=== PATIENT | male | born 2000 | race Caucasian/White ===

== ENCOUNTER 2024-10-05 11:51 | Emergency (ER) | payer SELFPAY ==
--- NOTE | 2024-10-05 12:10 | ED_ITS ---
<Statement entered by Leonarda Daugherty MD - 10/08/24 15:31> I was consulted by the SAMARIA, and we discussed the complexity of the problems being addressed. I approved the treatment and management plan for this patient's care in the emergency department, thus performing a substantive portion of the medical decision making. Leonarda Daugherty MD, ALEX, FACEP Discharge Plan Disposition Patient Disposition: Home, Self-Care Condition: Good Prescriptions Prescriptions: New vxqtyyspfyzukyc-bxzcvbnos-LQ [Bromfed DM] 2-30-10 mg/5 mL syrup 5 ml PO Q4H PRN (Reason: sinus symptoms) Qty: 118 0RF Referrals Follow up/Referrals: Provider,Referral, [Primary Care Provider] - See instructions Activity Restrictions/Add. Instructions Additional Instructions/Restrictions: You have been diagnosed with an upper respiratory tract infection. I sent medication to your pharmacy. If you have no improvement or worsening signs or symptoms follow-up with your PCP return to the ER as needed. I will call you later today with your results of your swabs. Clinical Impressions Clinical Impression: Influenza A Stand Alone Forms Stand Alone Forms: Work/School Release Print Language Print Language: Maltese Discharge ED Provider: Leonarda Daugherty General Adult HPI General Chief complaint: Upper Respiratory Infection Stated complaint: H/A, stuffy nose, sweats, B/A Time Seen by Provider: 10/05/24 12:08 History of Present Illness HPI narrative: Patient presents for evaluation of upper respiratory tract infection symptoms . Patient reports that he was exposed to multiple family members who were sick over [place]. He began having symptoms Saturday of headache cough congestion runny nose but denies chest pain shortness of breath increased work of breathing chills hemoptysis hematochezia melena hematemesis hematuria nausea vomiting diarrhea. He took Tylenol Motrin prior to arrival here but reports that his headache has not gone away. Related Data Previous Rx's ?Medication ?Instructions ?Recorded muynmcsyimhckgr-mposrzxufeakevs-FN 5 ml PO Q4H PRN sinus symptoms 10/05/24 2 mg-30 mg-10 mg/5 mL oral syrup #118 mL (Bromfed DM) Allergies Allergy/AdvReac Type Severity Reaction Status Date / Time No Known Allergies Allergy Verified 10/05/24 12:32 PFSH [facility] Disclaimer: The information contained in this section may have been updated after the patient was seen, as this information can be updated by other users. Social History Smoking Status: Current every day smoker alcohol intake: never current occupational status: employed Travel in the last 8 weeks: None ROS Obtained: Yes Systems reviewed as appropriate & no additional complaints except as documented Physical Exam General General appearance: alert and in no apparent distress Respiratory Respiratory exam: Present normal lung sounds bilaterally Cardiovascular Cardiovascular exam: Present regular rate Neurological Exam Neurological exam: Present alert and oriented X3 Medical Decision Making Medical Records Medical records reviewed: Yes I reviewed the patient's medical records. Screening: Per USPSTF and CDC recommendations, given the prevalence of disease in our region, it is our hospital?s policy to screen for HIV and viral Hepatitis for all patients aged 18 and over and those with ongoing risk factors. Jose Inquiry Pt receiving controlled substance: No Vital Signs: 10/05/24 12:17 10/05/24 12:48 Temperature 98.2 F 98.1 F Temperature Source Oral Pulse Rate 79 Pulse Rate [Right] 83 Respiratory Rate 18 16 Blood Pressure 137/82 Blood Pressure [Right Arm] 145/80 H Blood Pressure Mean [Right Arm] 101 Blood Pressure Source [Right Arm] Automatic Cuff 02 Sat by Pulse Oximetry 97 Lab Data Lab results reviewed: Yes I reviewed the patient's lab results. Lab Results 10/05/24 12:36: SARS-CoV-2 (PCR) Not detected, Influenza A Untype (PCR) Detected A, Influenza Type B (PCR) Not detected, POC RSV Rapid Negative Orders (Tests/Meds): ORDERS Category Date Time Status RSV Rapid Ab Screen Stat Lab 10/05/24 12:36 Completed Rapid PCR Covid and Flu A/B Stat Lab 10/05/24 12:36 Completed Medical Decision Narrative: In summary patient is a 24-year-old male who presents to the emergency department for evaluation of upper respiratory tract infection symptoms.. Patient is hemodynamically stable with a blood pressure 145/80 pulse 83 respiratory rate is 18 O2 sat of 97% on room air upon arrival, and afebrile at 98.2. Physical exam is significant for normal posterior pharynx with no exudate, normal breath sounds normal heart sounds normal bowel sounds with no abdominal tenderness. Patient is neurovascularly intact has no focal neurologic deficits pupils equal round reactive to light patient has no nuchal rigidity headache is diffuse and mild and nonreproducible on exam. Differential diagnosis includes viral or bacterial upper respiratory tract infection although the latter is less likely as patient has no red flags for such and multiple family members have been sick with similar symptoms over the holiday.. Initial workup will be conducted with respiratory swabs. Initial interventions were considered however patient took Tylenol Motrin prior to arrival thus are deferred for now. I had interactive discussion with the patient regarding my physical exam findings and course and my recommendations for treatment. Via patient directed discharge and decision making patient is comfortable going home with a prescription for Bromfed sent to his pharmacy, I will notify them later of the results of the swabs. Patient to follow-up with PCP for no improvement or worsening signs or symptoms or to return to the ER as needed. I reviewed patient swabs at 1630 and he is positive for influenza A. Patient notified at 1630. Critical Care Critical Care Time Critical Care Time: No
[2024-10-05 12:17] VITALS: BP 145/80; PULSE 83; RESP 18; TEMP 36.8; O2SAT 97; BMI 25.0
[2024-10-05 12:41] LABS: Coronavirus 19, PCR Not Detected (NotDetected); Influenza B, PCR Not Detected (NotDetected)
[2024-10-05 12:48] VITALS: BP 137/82; PULSE 79; RESP 16; TEMP 36.7
[2024-10-05 13:04] LABS: RSV Rapid Ab Screen Negative (Negative)
[2024-10-05 13:57] LABS: Influenza A, PCR Detected (NotDetected)
== END 2024-10-05 12:49 | disposition home or self-care (01) ==
PROVIDERS: Physician Assistant; Emergency Provider Student in an Organized Health Care Education/Training Program
DX: J10.1 Influenza due to other identified influenza virus with other respiratory manifestations (principal); R51.9 Headache, unspecified; R05.9 Cough, unspecified; R09.81 Nasal congestion
CPT/HCPCS: 87636; 87807; 99283